=== PATIENT | male | born 1950 | race Caucasian/White ===

== ENCOUNTER 2024-08-17 13:16 | Emergency (ER) | payer MEDICARE ==
[2024-08-17] MEDS ORDERED: Iopamidol-370 76% 500 ML MDV (1 ML CHARGE) ONE (14:06)
[2024-08-17] MEDS ORDERED: fentaNYL 50 mcg/mL 1 mL Vial ONE (15:16)
[2024-08-17 15:30] LABS: #Basophils Less than 0.03 10x3/uL (0.0-0.2); %Basophils 0.6 % (0.0-1.0); %Eosinophils 1.1 % (0.0-10.0); %Lymphocytes 15.3 % (21.0-51.0); %Monocytes 7.4 % (0.0-10.0); %Neutrophils 75.3 % (42.0-75.0); Hemoglobin 12.3 g/dL (14.0-18.0); Mean Corpuscular HGB CONC 33.2 g/dL (32.0-36.0); Mean Corpuscular Hemoglobin 32.2 pg (27.0-31.0); Mean Corpuscular Volume 96.9 fL (78.0-98.0); Mean Platelet Volume 9.2 fL (7.4-10.4); Platelet Count 77 10x3/uL (130-400); RBC Distribution Width 13.9 % (11.5-14.5); Red Blood Cell (RBC) Count 3.82 mill/uL (4.70-6.10)
[2024-08-17 15:41] LABS: ALT (SGPT) 13 U/L (Less than 45); AST (SGOT) 35 U/L (11-34); Albumin 2.5 g/dL (3.1-4.5); Alkaline Phosphatase 141 U/L (40-110); Anion Gap 8 mmol/L (10-20); BUN (Urea Nitrogen) 8 mg/dL (8.4-25.7); Bilirubin, Total 1.4 mg/dL (0.3-1.2); Calc. Creatinine Clearance 0 mL/min (70-130); Calcium 8.2 mg/dL (7.8-10.44); Carbon Dioxide 30 mmol/L (23-31); Chloride 108 mmol/L (98-107); Estimated GFR 83; Globulin 3.4 g/dL (2.4-3.5); Glucose 116 mg/dL (83-110); Potassium 4.3 mmol/L (3.5-5.1); Protein, Total 5.9 g/dL (5.8-8.1); Sodium 142 mmol/L (136-145)
[2024-08-17 15:48] LABS: Platelet Adequacy Comment Platelets Decreased; RBC Morphology Within Normal Limits
[2024-08-17 16:45] LABS: Troponin I Less than 0.010 ng/mL (< 0.028)
[2024-08-17] MEDS ORDERED: Ketorolac Tromethamine 30 MG (1 mL) VIAL ONE (16:49)
[2024-08-17] MEDS ORDERED: Morphine 4 MG/ML VIAL ONE ×2 (16:50→18:00)
[2024-08-17 17:01] LABS: Lipase 15 U/L (8-78)
[2024-08-17 17:04] LABS: Acetaminophen Less than 10 mcg/mL (Less than 10); Alcohol Less than 10.0 mg/dL (Less than 10); Salicylate Less than 8.0 mg/dL (Less than 8.0)
[2024-08-17] MEDS ORDERED: Boostrix 0.5 ML (Tdap) VIAL (>/=7 yrs of age) ONE (17:06)
[2024-08-17 17:24] LABS: Bacteria/HPF None Seen HPF (None Seen); Bilirubin Negative (Negative); Blood, Urine Negative (Negative); CAUTI Indications for Culture Alt mental st,lethar; Clarity Clear (Clear); Glucose, Urine (Dipstick) Normal (Negative); Ketone, Urine Negative (Negative); Leukocyte Negative Leu/uL (Negative); Nitrite Negative (Negative); Protein, Urine (Dipstick) Negative (Neg-Trace); RBC/HPF 0-3 HPF (0-3); Squamous Epithelial 0-3 HPF (0-3); WBC/HPF 0-3 HPF (0-3); pH, Urine 7.5 (5.0-9.0)
[2024-08-17 17:29] LABS: Urine Culture Reflex No No
[2024-08-17 17:32] LABS: Amphetamine Not Detected (NotDetected); Barbiturates Screen Not Detected (NotDetected); Benzodiazepine Screen Not Detected (NotDetected); Cocaine Metabolite Screen Not Detected (NotDetected); Methadone Not Detected (NotDetected); Methamphetamine Not Detected (NotDetected); Opiate Screen Detected (NotDetected); Oxycodone Screen Not Detected (NotDetected); Phencyclidine (PCP) Not Detected (NotDetected); THC/Cannabinoid Screen Not Detected (NotDetected); Tricyclic Screen Not Detected (NotDetected)
[2024-08-17 18:44] LABS: Troponin I 0.011 ng/mL (< 0.028)
== END 2024-08-17 19:53 | disposition home or self-care (01) ==
LOC: ERS 13:16
DX: S80.01XA Contusion of right knee, initial encounter (principal); I10 Essential (primary) hypertension; Z23 Encounter for immunization; W19.XXXA Unspecified fall, initial encounter
CPT/HCPCS: 70450; 71260; 72125; 73564 ×2; 73700; 74177; 80306; 80307; 81001; 82140; 83690; 84484 ×2; 87086; 90715; 93005; J1885; J2270; J3010; 36415; 80053; 84443; 85025; 90471; 96374; 96375; 96376; Q9967